=== PATIENT | female | born 1940 | race Caucasian/White ===

== ENCOUNTER → 2020-06-04 | Outpatient (CLI) | payer MEDICARE ==
--- NOTE | 2020-06-04 16:11 | CT ---
EXAM DESCRIPTION: Abdomen/Pelvis w/Contrast CLINICAL HISTORY: RUQ PAIN COMPARISON: None. TECHNIQUE: Postcontrast CT images of the abdomen and pelvis are obtained using standard imaging protocol. Positive oral contrast was utilized. This exam was performed according to our departmental dose-optimization program, which includes automated exposure control, adjustment of the mA and/or kV according to patient size and/or use of iterative reconstruction technique . FINDINGS: Visualized lung bases shows mild groundglass attenuation in the lung bases. The liver, spleen, pancreas, and adrenal glands are unremarkable. Gallbladder is not identified and presumed surgically absent. Circumferential wall thickening and adjacent fat stranding of the first portion of the duodenum seen. Large air and fluid-filled diverticulum measuring 4.8 x 4.5 cm posterior to the second portion of the duodenum near the head of the pancreas is seen. Severe vascular calcifications are seen. 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 Kidneys show normal cortical enhancement. No nephrolithiasis. No ureteral calcification or obstruction. Urinary bladder is nondistended and not well evaluated. Uterus is not visualized and presumed surgically absent. The appendix is not identified. No secondary signs of acute appendicitis. Contrast extends from the mid small bowel to the descending colon. No small bowel obstruction or bowel wall thickening is otherwise seen. Moderate to severe scattered diverticuli of the colon most significant in the descending to sigmoid region without associated inflammatory changes or fluid collections. No free intraperitoneal air. No abnormal drainable fluid collections. No pathologic lymphadenopathy. Osseous structures show no aggressive bony lesions. Degenerative changes of the spine are seen. Moderate calcified injection granuloma in the gluteal soft tissues bilaterally. IMPRESSION: Circumferential wall thickening and adjacent mesenteric fat stranding of the 1st-2nd portion of the duodenum likely represents infectious or inflammatory process including possible peptic ulcer disease. Large air and fluid-filled posterior diverticulum of the second portion of the duodenum is seen near the head of the pancreas. Severe colon diverticulosis without CT evidence of acute diverticulitis. Other findings as described in body of report. Nonspecific groundglass attenuation in the lung bases. Imaging features can be seen with COVID-19 pneumonia, though are nonspecific and can occur with a variety of infectious and noninfectious processes. [PneInd] Electronically signed by: Stevie Scanlon MD 06/04/2020 4:09 PM [facility]
== END ==
LOC: CT 14:15
PROVIDERS: ATTEND General Practice
DX: K57.30 Diverticulosis of large intestine without perforation or abscess without bleeding (principal); R91.8 Other nonspecific abnormal finding of lung field; I70.90 Unspecified atherosclerosis; M47.9 Spondylosis, unspecified; M79.9 Soft tissue disorder, unspecified